=== PATIENT | female | born 1950 | race Caucasian/White ===

== ENCOUNTER 2016-09-01 12:07 | Outpatient (CLI) | payer MEDICARE, OTHER | END 2016-09-01 12:10 | LOC: LABRHC 12:07 | PROVIDERS: ATTEND Physician Assistant | DX: R30.0 Dysuria (principal); R32 Unspecified urinary incontinence | CPT/HCPCS: 87086; 87186 ==

== ENCOUNTER 2016-09-27 08:14 | Outpatient (CLI) | payer MEDICARE, OTHER | END 2016-09-27 08:15 | LOC: OUT 08:14 | PROVIDERS: ATTEND General Practice | DX: N39.46 Mixed incontinence (principal); N32.81 Overactive bladder | CPT/HCPCS: G0463 ==

== ENCOUNTER 2016-10-05 11:28 | Outpatient (CLI) | payer MEDICARE, OTHER | END 2016-10-05 11:30 | LOC: RT 11:28 | PROVIDERS: ATTEND General Practice | DX: Z01.810 Encounter for preprocedural cardiovascular examination (principal) ==

== ENCOUNTER 2016-10-25 07:52 | Day surgery (SDC) | payer MEDICARE, OTHER ==
[2016-10-25 08:50] LABS: BASOPHILS % 1.1 (0.0-1.5); EOSINOPHILS % 4.2 % (0.0-6.8); MEAN CORPUSCULAR HEMOGLOBIN 30.2 pg (28.0-34.0); MEAN CORPUSCULAR VOLUME 87.4 fl (80.0-100.0); MONOCYTES % 5.2 % (0.0-11.0); NEUTROPHILS # 3.4 # k/uL (1.4-7.7)
[2016-10-25 09:04] LABS: eGFR (African) > 60; eGFR (Non-African) > 60
--- NOTE | 2016-10-25 14:16 | Operative Note ---
SURGEON: Ryan Cee MD ANESTHESIA: General with an LMA. ESTIMATED BLOOD LOSS: 5 mL. PREOPERATIVE DIAGNOSIS: Stress urinary incontinence. POSTOPERATIVE DIAGNOSIS: Stress urinary incontinence. PROCEDURE PERFORMED: 1. Tension-free vaginal tape procedure. 2. Cystoscopy. OPERATIVE PROCEDURE AND FINDINGS: The patient was taken to the operating room. After an adequate level of general anesthesia, she was prepped and draped in the lithotomy position. A 30 mL balloon Motta was placed in the urinary bladder. The urethral vesical junction was easily identified. A linear incision was made parallel to the urethra and overlying the urethra in the mid-portion of the urethra for a distance of 2 cm. Sharp dissection was used to separate the overlying vaginal mucosa from the underlying perivesical and periurethral fascia on each side of the urethra. Using a sharp trocar, the tape was placed up through the space of Retzius and out through the anterior abdominal wall skin on each side of the mid -portion of the urethra. Appropriate tension was placed on the tape. A cystoscopy was performed. There was no evidence of injury to the bladder or urethra. Both urethral orifices were easily identified and the tape was transected at the skin margins anteriorly and the vagina was closed with interrupted 4-0 Vicryl. This ended the operative procedure. Needle, sponge, and instrument counts were performed at the end of her operation. I was told the counts were correct by the OR circulating nurse and document management technician. The patient was awakened and transferred to the recovery room in very good condition. RAFAEL
== END 2016-10-25 07:53 ==
LOC: OPSURG 07:52
PROVIDERS: ATTEND General Practice
DX: N39.3 Stress incontinence (female) (male) (principal)
CPT/HCPCS: 36415; 57288; 80053; 85025; 85610; 85730; J1100; J2250; J2370; J2405; J2704; J3010; J7120; A4346; A4355; C1771; J0131; J3490; J7030; S1016

== ENCOUNTER 2016-11-08 08:19 | Outpatient (CLI) | payer MEDICARE, OTHER | END 2016-11-08 08:20 | LOC: OUT 08:19 | PROVIDERS: ATTEND General Practice | DX: Z90.710 Acquired absence of both cervix and uterus (principal); N39.41 Urge incontinence | CPT/HCPCS: G0463 ==

== ENCOUNTER 2016-11-22 08:46 | Outpatient (CLI) | payer MEDICARE, OTHER | END 2016-11-22 08:47 | LOC: OUT 08:46 | PROVIDERS: ATTEND General Practice | DX: N39.41 Urge incontinence (principal); Z90.710 Acquired absence of both cervix and uterus; Z90.722 Acquired absence of ovaries, bilateral | CPT/HCPCS: G0463 ==

== ENCOUNTER 2017-10-11 10:09 | Outpatient (CLI) | payer MEDICARE, OTHER ==
[2017-10-11 11:00] LABS: eGFR (African) > 60; eGFR (Non-African) > 60
== END 2017-10-11 10:10 ==
LOC: LAB 10:09
PROVIDERS: ATTEND Physician Assistant
DX: I10 Essential (primary) hypertension (principal); E78.00 Pure hypercholesterolemia, unspecified; R73.9 Hyperglycemia, unspecified
CPT/HCPCS: 36415; 80053; 80061; 83036

== ENCOUNTER 2019-02-07 11:22 | Outpatient (CLI) | payer MEDICARE, OTHER ==
--- NOTE | 2019-02-13 11:41 | OP Clinic Progress Note ---
DATE OF VISIT: 02/07/2019 SUBJECTIVE: Kristan Calderon is a 68-year-old female presenting to the clinic today for followup of right great toenail lateral border ingrown toenail with slight paronychia. She was placed on antibiotics yesterday and is here for followup to have the edge of the nail removed. The patient does not admit to any fevers, chills, nausea, vomiting, shortness of breath or chest pain. She understands the risks and benefits of the procedure and decides to go forward with the procedure at this time and would like to just do the temporary procedure as a temporary procedure worked beautifully on the medial side previously elsewhere. OBJECTIVE: Vitals: Temperature 98.0 degrees Fahrenheit, heart rate 74, respiration rate 18, blood pressure 154/82. O2 saturation is 96% on room air. Vascular: 1+ DP and PT pulses, right foot. Capillary refill time is immediate to the toes, right foot. There is no edema noted except for slight edema at the right great toe, lateral nail border. Dermatologic: There is evidence of a little bit of crusted material at the distal aspect of the right great toe lateral nail border where some drainage has happened since I saw her yesterday. There is mild erythema noted on the lateral aspect of the right great toe as well. There is no significant warmth noted, however. There are no other gross abnormalities noted or concerning areas of the skin. There is incurvation of the toe into the lateral border. Musculoskeletal: There is pain on palpation noted on the lateral border of the right great toenail. There are no other gross abnormalities noted. Neurologic: Light touch sensation is intact to the toes, right foot. ASSESSMENT AND PLAN: 1. Onychocryptosis. 2. Slight paronychia - resolving on antibiotics - looks pretty good today overall. PROCEDURE #1: Consent was obtained after risks and benefits were discussed, they include but were not limited to bleeding, infection and nonhealing due to blood flow and the patient understands these risks and benefits and agrees to go forward with the procedure today of the right great toe lateral nail border partial nail avulsion. We will not do a temporary procedure today. An alcohol swab was utilized to cleanse the base of the right great toe. 4 cc of a 1:1 mix of 2% lidocaine plain and 0.5% Marcaine plain were injected into the base of the right great toe. Anesthesia was obtained. Betadine was used to clean the toe. The patient denies any allergies. At this time, the lateral border of the right great toenail was avulsed with a hemostat and nail nippers. This was then rinsed with a copious amount of normal saline and dressings applied consisting of triple antibiotic ointment, 4 x 4 gauze, 2-inch Tello, and 1-inch Coban beginning on the toe and ending on the distal forefoot to help hold it on the toe. The patient tolerated the procedure very well. The patient will return to the clinic in one week for followup and then two weeks after that. The patient will contact us if any concerns in the meantime. The patient will continue and finish the rest of her doxycycline antibiotics that she started yesterday. She has taken two pills yesterday and one this morning prior to coming in so far. Suzanna SouthP.M.(Dictated/not signed) /Accutype [id number] /mab MTDD
== END 2019-02-07 11:49 ==
LOC: POD 11:22
PROVIDERS: ATTEND Podiatrist Foot & Ankle Surgery
DX: L30.0 Nummular dermatitis (principal); L03.031 Cellulitis of right toe
CPT/HCPCS: 11730; 99213; G0463; A4554

== ENCOUNTER 2019-02-14 11:04 | Outpatient (CLI) | payer MEDICARE, OTHER ==
--- NOTE | 2019-02-20 08:57 | OP Clinic Progress Note ---
DATE OF VISIT: 02/14/2019 SUBJECTIVE: Kristan Calderon is a 68-year-old female presenting to clinic today for followup of a right great toenail lateral nail border partial nail avulsion that was performed on 02/07/2019. The patient has been dressing it appropriately and states that she is having no pain. She is very happy that she had the procedure done. OBJECTIVE: Vitals: Temperature 98.2 degrees Fahrenheit, heart rate 74, respiration rate 18, blood pressure 155/68. O2 saturation is 96% on room air. Vascular: 1+ DP and PT pulses, right foot. Capillary refill time is immediate to the toes of the right foot. There is no edema noted, right foot. Dermatologic: There is no erythema or malodor or drainage or evidence of any signs of infection of the right great toe lateral nail border. There are no other skin concerns elsewhere, right foot. There is mild crusting in the lateral border site, which was removed today and there are no signs of infection there. Musculoskeletal: There is no pain on palpation noted on the lateral border of the right great toenail at this time. There are no other gross abnormalities noted, right foot. Neurologic: Light touch sensation is intact to the toes, right foot. ASSESSMENT AND PLAN: 1. Onychocryptosis. 2. Paronychia-resolved. A slight bit of crust material was removed from the lateral border of the right great toenail today. This is not an official procedure, but it definitely will help her with healing. She has very mild raw tissue in that lateral nail border and she was encouraged to do antibiotic ointment and a Band-Aid daily for three or four more days and then just a Band-Aid for three or four days and then she should be done and healed. The patient is to return to clinic in two weeks for follow-up visit to make sure she has healed, but she was invited to call and cancel if needed if it is completely healed and she is doing great at that time. She has no further questions and we will see her in two weeks otherwise. Suzanna SouthP.M. (Dictated/not signed) /Accutype [id number] /mab MTDD
== END 2019-02-14 11:40 ==
LOC: POD 11:04
PROVIDERS: ATTEND Podiatrist Foot & Ankle Surgery
DX: L60.0 Ingrowing nail (principal)
CPT/HCPCS: 99213; G0463

== ENCOUNTER 2019-05-02 11:48 | Outpatient (CLI) | payer MEDICARE, OTHER ==
--- NOTE | 2019-05-02 13:04 | Diagnostic Imaging Report ---
PATIENT MR#: [id number] PATIENT PATIENT NAME: CARRIE GLORIA DATE OF : 1950 REFERRING PHYSICIAN: Rosita Laura EXAM DATE: 05/02/2019 ACCESSION NUMBER: [id number] EXAM DESCRIPTION: CHEST 2VIEW HISTORY: CONGESTION/COUGH COMPARISON: None provided. CHEST RADIOGRAPH, FRONTAL AND LATERAL: Upper mediastinum: Not widened. Heart: No cardiomegaly. Lungs: No lobar infiltrate, pulmonary edema, pneumothorax or significant effusion. Skeleton: Thoracic dextrocurvature. Upper thoracic spondylosis IMPRESSION: No acute thoracic process. Read by: Dr. Sreedhar Cruz Transcribed by: Sreedhar Cruz Transcribed Date: 05/02/2019 1:03:18 PM Electronically signed by: Dr. Sreedhar Cruz Date signed: 05/02/2019 1:03:18 PM
== END 2019-05-02 11:58 ==
LOC: RAD 11:48
PROVIDERS: ATTEND Family Medicine
DX: R05 Cough (principal)
CPT/HCPCS: 71046